=== PATIENT | female | born 1985 | race African-American/Black ===

== ENCOUNTER 2020-07-04 06:28 | Inpatient (IN) | payer OTHER, SELFPAY ==
[2020-07-04] VITALS (30 sets, daily range): BP systolic 93–175; BP diastolic 51–138; PULSE 79–249; RESP 14–18; TEMP 36.6–36.9; O2SAT 86–100; BMI 31.3
--- NOTE | 2020-07-04 06:28 | LDADM ---
This patient, Mallorie Rodrigez, was admitted to Labor/Delivery/Recovery 107 on 07/04/20 at 06:28. Plans for labor, pain management and were discussed with patient. Patient/family oriented to hospital policies and general routines including ID bracelet, bed and alarms, visiting hours, pain management, procedures, bathroom and other care routines, personal items, smoking policy, room service/diet and guest tray routines, security routines, and visiting hours. Patient/Family are encouraged to report perceived risks to care and to ask questions if they do not understand what they are told or what they should do. See OBIX for further documentation.
[2020-07-04] MEDS: AMPICILLIN 2 GM/NS 100 ML 2 GM/100 ML BAG IVPB (06:50)
[2020-07-04] MEDS: LACTATED RINGERS 1,000 ML 30 ML IV CONT (06:50)
[2020-07-04 06:55] LABS: Basophils Percent Auto 0.2 % (0.2-1.2); Eosinophils Percent Auto 0.2 % (0-4.4); Hematocrit 39.5 % (37.0-47.0); Hemoglobin 12.8 g/dL (12.0-15.0); Immature Granulocyte Absolute 0.07 K/mm3 (0.00-0.031); Immature Granulocyte Percent A 0.6 % (0-0.5); Lymphocytes Absolute Auto 1.98 K/mm3 (0.9-3.2); Lymphocytes Percent Auto 16.2 % (18.3-44.2); Mean Corpuscular HGB Conc 32.4 g/dl (32-36); Mean Corpuscular Hemoglobin 29.2 pg (26-34); Mean Corpuscular Volume 90.2 fl (80-100); Mean Platelet Volume 10.7 fl (7.4-10.4); Monocytes Absolute Auto 0.9 K/mm3 (0.1-0.6); Monocytes Percent Auto 7.1 % (2.6-8.5); Neutrophils Absolute Auto 9.3 K/mm3 (1.3-6.7); Neutrophils Percent Auto 75.7 % (45.5-73.1); Platelet Count Result 327 k/mm3 (150-375); Red Blood Count 4.38 M/mm3 (4.2-5.4); Red Cell Distribution Width 15.1 % (11.5-14.5); White Blood Count 12.2 K/mm3 (4.5-10.0)
[2020-07-04] MEDS: OXYTOCIN 30 UNITS/NS 500 ML 30 UNITS/500 ML BAG 999 UNITS IV CONT (07:35)
[2020-07-04] MEDS: IBUPROFEN 600 MG TABLET PO ×2 (08:18→23:30)
--- NOTE | 2020-07-04 10:16 | WPDANESEPP ---
Anes - Eval Pre Procedure Procedure: labor epidural Date/Time: 07/04/20 10:16 Surgeon: oscar Pre Op Diagnosis: Labor Patient Data Age: 34 Gender: F Height: 1.68 m Weight: 88 kg Last Vital Signs Temp 36.6 C 07/04/20 08:15 Pulse 93 07/04/20 10:00 BP 117/76 07/04/20 10:00 Pulse Ox 86 L 07/04/20 07:34 Allergies Allergy/AdvReac Type Severity Reaction Status Date / Time No Known Allergies Allergy Unverified 04/21/19 14:14 Home Medications Medication Instructions Recorded Confirmed Type PNV cmb#95-ferrous fumarate-FA 1 tablet PO DAILY 06/29/20 07/04/20 History [] Laboratory Tests 07/04/20 07/04/20 07/04/20 06:49 06:49 06:49 WBC 12.2 K/mm3 H K/mm3 (4.5-10.0) RBC 4.38 M/mm3 M/mm3 (4.2-5.4) Hgb 12.8 g/dL g/dL (12.0-15.0) Hct 39.5 % % (37.0-47.0) MCV 90.2 fl fl (80-100) MCH 29.2 pg pg (26-34) MCHC 32.4 g/dl g/dl (32-36) RDW 15.1 % H % (11.5-14.5) Plt Count 327 k/mm3 k/mm3 (150-375) MPV 10.7 fl H fl (7.4-10.4) Immature Gran % (Auto) 0.6 % H % (0-0.5) Neut % (Auto) 75.7 % H % (45.5-73.1) Lymph % (Auto) 16.2 % L % (18.3-44.2) [place] % (Auto) 7.1 % % (2.6-8.5) Eos % (Auto) 0.2 % % (0-4.4) Baso % (Auto) 0.2 % % (0.2-1.2) Lymph # (Auto) 1.98 K/mm3 K/mm3 (0.9-3.2) [place] # (Auto) 0.9 K/mm3 H K/mm3 (0.1-0.6) Eos # (Auto) 0.0 K/mm3 K/mm3 (0-0.3) Baso # (Auto) 0.0 K/mm3 K/mm3 (0.0-0.1) Abs Immat Gran (auto) 0.07 K/mm3 H K/mm3 (0.00-0.031) Absolute Neuts (auto) 9.3 K/mm3 H K/mm3 (1.3-6.7) Absolute Nucleated RBC 0.0 K/mm3 K/mm3 (0.0-0.012) Nucleated RBC % 0.0 % % (0.0-0.2) RPR Pending Blood Type O Positive Antibody Screen Negative Patient hx anesthesia problems: none Family hx anesthesia problems: none PMFSH Past Medical History Medical History (Updated 10/08/19 @ 00:00 by Rossy Treviño) No pertinent past medical history Surgical History Surgical History (Updated 10/07/19 @ 07:32 by Bin Gomez MD) History of inguinal hernia repair Family History Family History (Updated 06/29/20 @ 13:50 by Sean Corbett RN) Mother Diabetes mellitus Hypertension Other Family history of malignant neoplasm Social History Social History Smoking status: Never smoker Second hand tobacco smoke exposure: No Alcohol intake: current Substance use: never Gender identity (if verbalized by the patient): Female Sexual Orientation (if Verbalized by the Patient): Straight or Heterosexual Spiritual care concerns: No Exam Day of Procedure 07/04/20 10:16
--- NOTE | 2020-07-04 11:36 | PC.NURSE ---
Patient transferred to post room #283 via wheelchair. Support person present. Oriented to unit, room, information board, rooming in, admission packet and security measures. Patient verbalizes understanding.
[2020-07-04] MEDS: ACETAMINOPHEN 325 MG TABLET 650 MG PO (12:44)
[2020-07-05] VITALS (14 sets, daily range): BP systolic 85–124; BP diastolic 61–89; PULSE 66–94; RESP 12–20; TEMP 36.2–36.8; O2SAT 95–100
[2020-07-05 05:41] LABS: Hematocrit 31.5 % (37.0-47.0); Hemoglobin 10.1 g/dL (12.0-15.0)
[2020-07-05] MEDS: LACTATED RINGERS 1,000 ML 30 ML IV CONT (06:50)
--- NOTE | 2020-07-05 07:08 | WPDANESEPPF ---
Anes - Initial Pre Proc Eval Procedure: Operation Date: 07/05/20 07:30 Proposed Procedures p Post- Tubal Ligation - Alejo Worrell MD Date/Time: 07/05/20 07:08 Surgeon: Alejo Worrell MD Pre Op Diagnosis: Labor Patient Data Age: 34 Gender: F Height: 5 ft 6 in Weight: 88 kg Last Vital Signs Temp 36.9 C 07/04/20 19:15 Pulse 81 07/04/20 19:15 Resp 14 07/04/20 19:15 BP 97/64 L 07/04/20 19:15 Pulse Ox 97 07/04/20 19:15 Allergies Allergy/AdvReac Type Severity Reaction Status Date / Time No Known Allergies Allergy Unverified 04/21/19 14:14 Home Medications Medication Instructions Recorded Confirmed Type PNV cmb#95-ferrous fumarate-FA 1 tablet PO DAILY 06/29/20 07/04/20 History [] Laboratory Tests 07/04/20 07/05/20 06:49 04:30 Hgb 10.1 g/dL L g/dL (12.0-15.0) Hct 31.5 % L % (37.0-47.0) Blood Type O Positive Antibody Screen Negative Patient hx anesthesia problems: none Family hx anesthesia problems: none PMFSH Past Medical History Medical History No pertinent past medical history Surgical History Surgical History History of inguinal hernia repair Family History Family History Mother Diabetes mellitus Hypertension Other Family history of malignant neoplasm Social History Social History Smoking status: Never smoker Second hand tobacco smoke exposure: No Alcohol intake: current Substance use: never Gender identity (if verbalized by the patient): Female Sexual Orientation (if Verbalized by the Patient): Straight or Heterosexual Spiritual care concerns: No Anes - Eval Final PreProcedure Day of Procedure 07/05/20 07:08 Patient weight: obese Heart: regular rate and rhythm Lungs: clear to auscultation Airway: Mallampati scale class II Neurological: alert and oriented Last oral intake: >/= 8 hours ASA classification: II Emergent: no Anesthetic plan: proceed Anesthesia type and monitoring: general ETT and standard monitoring Informed Consent: The patient's anesthetic plan and its attendant risks and benefits were discussed with the patient/family/POA. Questions were solicited and answers provided to the satisfaction of the patient/family/POA.
--- NOTE | 2020-07-05 07:15 | PM.IMHP ---
H&P: HPI History of Present Illness Date/Time: 07/05/20 07:15 Chief complaint: Labor Narrative: Mallorie Rodrigez is a 34 year old female s/p desires permanent sterilization. [facility] Past Medical History Medical History No pertinent past medical history Surgical History Surgical History History of inguinal hernia repair Family History Family History Mother Diabetes mellitus Hypertension Other Family history of malignant neoplasm Social History Social History Smoking status: Never smoker Second hand tobacco smoke exposure: No Alcohol intake: current Substance use: never Gender identity (if verbalized by the patient): Female Sexual Orientation (if Verbalized by the Patient): Straight or Heterosexual Spiritual care concerns: No Meds Home Medications and Allergies Home Medications Medication Instructions Recorded Confirmed Type PNV cmb#95-ferrous fumarate-FA 1 tablet PO DAILY 06/29/20 07/04/20 History [] Allergies Allergy/AdvReac Type Severity Reaction Status Date / Time No Known Allergies Allergy Unverified 04/21/19 14:14 Vital Signs Vital Signs - 24 hr 07/04/20 07:16 07/04/20 07:18 07/04/20 07:19 Temperature Pulse Rate 97 79 Respiratory Rate Blood Pressure 135/79 142/84 H Pulse Oximetry 100 07/04/20 07:23 07/04/20 07:28 07/04/20 07:30 Temperature Pulse Rate 90 Respiratory Rate Blood Pressure 114/77 Pulse Oximetry 100 100 07/04/20 07:33 07/04/20 07:34 07/04/20 07:45 Temperature Pulse Rate 101 H Respiratory Rate Blood Pressure 123/61 Pulse Oximetry 99 86 L 07/04/20 08:00 07/04/20 08:15 07/04/20 08:31 Temperature 36.6 C Pulse Rate 115 H 249 H 92 Respiratory Rate Blood Pressure 120/73 175/138 H 112/69 Pulse Oximetry 07/04/20 08:45 07/04/20 09:26 07/04/20 09:30 Temperature Pulse Rate 95 109 H 91 Respiratory Rate Blood Pressure 102/51 L 112/67 115/58 L Pulse Oximetry 07/04/20 09:45 07/04/20 10:00 07/04/20 10:27 Temperature 36.9 C Pulse Rate 98 93 102 H Respiratory Rate 18 Blood Pressure 112/64 117/76 109/69 Pulse Oximetry 100 07/04/20 19:15 Temperature 36.9 C Pulse Rate 81 Respiratory Rate 14 Blood Pressure 97/64 L Pulse Oximetry 97 Exam GI: Other: fundus at umbilicus H&P: Results Labs Labs: Short CBC 07/05/20 Range/Units 04:30 Hgb 10.1 L (12.0-15.0) g/dL Hct 31.5 L (37.0-47.0) % Assessment and Plan Assessment and plan (1) Sterilization: Code(s): Z30.2 - Encounter for sterilization Status: Acute Assessment and Plan: scheduled for a tubal ligation. risk and benefits reviewed in detail.
--- NOTE | 2020-07-05 07:17 | WPDHPUPDATE1 ---
History and Physical Update Update Date/Time: 07/05/20 07:17 History and Physical has been reviewed, including an updated exam of the patient. There are NO changes in the patient's condition. Risks, benefits, and alternatives have been discussed and questions answered. Patient agrees to proceed with procedure.
[2020-07-05 09:51] LABS: Rapid Plasma Reagin Non-Reactive (NonReactive)
[2020-07-05] MEDS: IBUPROFEN 600 MG TABLET PO ×2 (11:09→16:29)
[2020-07-05] MEDS: SIMETHICONE 80 MG TAB.CHEW PO ×2 (11:09→16:28)
--- NOTE | 2020-07-05 11:16 | PC.NURSE ---
0715Transported to OR via stretcher, accompanied by OR staff.
--- NOTE | 2020-07-05 11:18 | PC.NURSE ---
0943 Returned from OR via stretcher, accompanied by [employer]. Moved easily from stretcher to bed. VS Stable.
--- NOTE | 2020-07-05 12:42 | P.OP_ITS ---
Procedure Note - Detailed Date of procedure: 07/05/20 Pre-op diagnosis: desires permanent sterilation Post-op diagnosis: same Procedure performed: post tubal ligation Implants: The patient was taken to the operating room given general anesthesia. The patient was then repositioned in a supine position and then prepped and draped in the usual fashion for tubal ligation. Subumbilical ridge was created using two Kingsley and first knife was used to make a transverse incision. The Kingsley were removed and used to be grasped incisional edges and both blunt and sharp dissection down to the level of the fascia was then completed. The fascia grasped with two Josias's and then sharply incised and then peritoneum was entered with use of blunt dissection. Two [place] retractors were put in place and kristal was used to grasp the left fallopian tube and then regrasped with [place]'s and followed to the fimbriated end. A roberta clamp was used to clamp and completely transect, and suture ligated. Adequate hemostasis was noted. The right fallopian tube was also transected and suture ligated with O vicryl suture. The peritoneum as well as fascia was reapproximated with 0-Vicryl. The subcutaneous tissues reapproximated with 3-0 Vicryl and skin edges reapproximated with 4-0 Vicryl as well in a subcuticular stitch. Pressure dressings were applied. Sterile dressing was applied. Instrument count, needle count, and sponge counts were all correct, and the patient was taken to recovery room in stable condition. Anesthesia: GLMA Surgeon: Alejo Worrell MD Estimated blood loss (mL): 10 Drains: No Packing: No Pathology: yes Complications: None Condition: stable Disposition: PACU Findings: normal tubes and ovaries
[2020-07-05] MEDS: DOCUSATE SODIUM 100 MG CAPSULE PO (16:28)
[2020-07-06] MEDS: IBUPROFEN 600 MG TABLET PO ×2 (05:15→13:22)
--- NOTE | 2020-07-06 07:36 | PM.OP ---
Procedure Note - Brief Procedure Note - Brief Date of procedure: 07/06/20 Pre-op diagnosis: desires permanent sterilation Post-op diagnosis: same Procedure performed: post bilateral salpingectomy Anesthesia: GLMA Surgeon: Alejo Worrell MD Estimated blood loss (mL): 10 Drains: No Packing: No Pathology: yes Complications: None Condition: stable Disposition: PACU Findings: normal tubes and ovaries
[2020-07-06 08:25] VITALS: BP 102/79; PULSE 72; RESP 18; TEMP 36.7; O2SAT 100
--- NOTE | 2020-07-06 12:34 | PC.NURSE ---
Patient viewed the discharge video Mother & Baby Care, The First Two Weeks . Patient was given the opportunity and encouraged to ask questions. Patient verbalized understanding of information shared and has been given the mother/baby guide for home reference.
--- NOTE | 2020-07-06 12:44 | WPDANESPN ---
Anes - Prog Note Post-Op Date/Time: 07/06/20 12:44 Cardiovascular status: normal Respiratory status: normal Airway patency: baseline Mental status: baseline Post-Op hydration status: normal Vital Signs: Last Vital Signs Temp 36.7 C 07/06/20 08:25 Pulse 72 07/06/20 08:25 Resp 18 07/06/20 08:25 BP 102/79 07/06/20 08:25 Pulse Ox 100 07/06/20 08:25 Pain Score (VAS): 0 I/O: Intake & Output 07/05/20 07/06/20 07/06/20 23:59 07:59 15:59 Intake Total 240 Balance 240 Laboratory Tests 07/05/20 04:30 Post-procedural complaints: none Patient Feedback: Patient satisfied with anesthetic care.
[2020-07-06] MEDS: TETANUS,DIPHTHERIA,AC PERTUSSIS ADULT (0.5 ML) BOOSTRIX IM (13:21)
[2020-07-07 09:40] VITALS: BP 111/85; PULSE 83; RESP 20; TEMP 36.8; O2SAT 99
--- NOTE | 2020-07-16 11:06 | PM.OBPRVD ---
OB - Delivery Note Procedure Delivery date: 07/04/20 Procedure: Procedures Operation Date: 07/05/20 07:30 Actual Procedures Side Surgeon p Post- Tubal Ligation Alejo Worrell MD events: Gestational Diabetes Intrapartal events: None Induction method: none Delivery monitor: external FHT and external uterine Route of delivery: Laceration description: None Estimated blood loss (mL): 60 Anesthesia type: None Disposition: observation Baby Date of : 07/04/20 Time of : 07:34 Weeks of gestation at delivery: 38 Infant gender: Female Weight (pounds): 8 Weight (ounces): 2 presentation: vertex Placenta delivery description: Spontaneous cord vessel description: 3 Vessels, Clamped/Cut and Around Extremity x1 score one minute: 9 score five minutes: 9
--- NOTE | 2020-07-16 11:09 | PM.OBDSVD ---
DS: Admitting Diagnosis Admitting Diagnosis Admitting Diagnosis: desires permanent sterilation DS: Discharge Diagnosis Discharge Diagnosis (1) Sterilization: Code(s): Z30.2 - Encounter for sterilization Status: Acute OB - DS: Summary OB Procedures : NST OB Procedures Intrapartum: Spontaneous Vag Delivery OB Procedures: : P.P. tubal ligation Peripartum Data Procedures: Procedures Operation Date: 07/05/20 07:30 Actual Procedures Side Surgeon p Post- Tubal Ligation Alejo Worrell MD Time Spent with Patient Time attestation: Total time spent providing and/or coordinating discharge services: DS: Data Data Completed and Pending Completed studies during hospitalization: Pending at discharge 07/05/20 07:54 Surgical [PTH] Routine Discharge Plan Discharge Attending physician on discharge: Alejo Worrell Consulting providers: Hi Yung Discharging Clinician: Andrea Worrell Patient Disposition: Home, Self-Care Activity: may shower, follow weight bearing status and pelvic rest Diet: regular Wound Care Instructions: incision open to air Discharge Instructions: Education: Mom and Baby Guide Given to: Mother Follow-Up: Call your delivering provider's office for an appointment to be seen in: Call for appointment Mom and baby should come to the [facility] for the follow-up appointment. Appointment Date/Time: Tuesday, July 07, 2020 at 9:00 am What to expect at your follow-up visit: Blood Pressure Check Physical Assessment Call [phone] if you are unable to keep your appointment time. BREAST CARE: * Wear a snug supportive bra. * For engorgement discomfort: Bottle Feeding: * May apply ice packs ABDOMINAL INCISION: (if applicable) * Allow incision to air dry * Do NOT use lotions for powders on your incision * When showering, allow soap and water to run over the incision, but do not wash incision EPISIOTOMY/PERINEAL CARE: * Until bleeding stops, use your radha bottle after urinating * Change your pad frequently throughout the day * You may take sitz baths several times a day (fill your bathtub with warm water and soak for 20 minutes.) Do NOT bathe in the water * No tub baths until seen by your physician - You may shower ACTIVITY: * Rest as much as possible. * Do not exercise or lift anything heavier than your baby (such as laundry or other children.) * Avoid stairs or driving as much as possible. * Do not put anything into the vagina. No douching, tampons, or sexual activity until seen by physician. NOTIFY PHYSICIAN IF YOU HAVE ANY QUESTIONS OR IF ANY OF THE FOLLOWING SYMPTOMS OCCUR: * If your incision becomes red, swollen, or more painful than what you have experienced in the hospital. * If your vaginal bleeding becomes foul smelling. * If your vaginal bleeding becomes more heavy than a period or if your bleeding changes from pink to bright red. However, you may pass an occasional walnut-sized clot once or twice for the first week . * If you experience a sharp, shooting pain in you calves. * If you discover a hard, reddened area on your breast or if you experience flu-like symptoms. DIET: * Eat regular, well-balanced meals. * Drink plenty of fluids daily. Stand Alone Forms: General Discharge Information Follow-up/Referrals: Alejo Worrell MD [Physician] - Discharge Medications: New hydrocodone-acetaminophen 5-325 mg Tablet 1 tab PO Q3H PRN (Reason: Pain Rated 5 Or Less) Qty: 10 RF: 0 ibuprofen 600 mg Tablet 600 mg PO Q6H PRN (Reason: Cramping) Qty: 60 RF: 0 Continued PNV cmb#95-ferrous fumarate-FA [] 28 mg iron- 800 mcg Tablet 1 tablet PO DAILY RF: 0 Date of admission: 07/04/20 06:28 Primary Care Provider: PHYSICIAN,CONCRETE FLOAT MAKER Admitting Provider: Alejo Worrell Discharge Date/Time: 07/06/20 15:02 Attending
== END 2020-07-06 15:02 | disposition home or self-care (01) | DRG 541 ==
LOC: ANHLDR 09:25 → ANHOB2 10:27
PROVIDERS: Admitting Provider Obstetrics & Gynecology; Visit Provider Obstetrics & Gynecology
PROC: 0UB70ZZ Excision of Bilateral Fallopian Tubes, Open Approach (ICD-10-PCS; CPT 58605; principal; 2020-07-05 07:30)
DX: O99.824 Streptococcus B carrier state complicating childbirth (principal); Z37.0 Single live birth; Z3A.38 38 weeks gestation of pregnancy; O24.429 Gestational diabetes mellitus in childbirth, unspecified control; Z30.2 Encounter for sterilization; O99.214 Obesity complicating childbirth; E66.9 Obesity, unspecified; O69.82X0 Labor and delivery complicated by other cord entanglement, without compression, not applicable or unspecified
CPT/HCPCS: 36415; 85014; 85018; 85025; 86592; 86850; 86900; 86901; 88302; 90715; A9270; J0290; J0330; J1100; J1170; J2405; J2590; J2704; J2795; J3010; J7120